=== PATIENT | male | born 2000 | race Two or more races ===

== ENCOUNTER 2019-09-01 12:44 | Emergency (ER) | payer MEDICAID ==
[~2019-09-01] VITALS: Ht 180.3 cm; Wt 79.4 kg
[2019-09-01 12:58] VITALS: BP 129/77
[2019-09-01] MEDS ORDERED: ACETAMINOPHEN ES 500 MG TABLET PO ONE (14:00)
[2019-09-01] MEDS ORDERED: ACETAMINOPHEN ES 500 MG TABLET ONE (14:10)
--- NOTE | 2019-09-01 16:06 | NUR ---
Patient discharged to home in stable condition. Written and verbal after care instructions given. Patient verbalizes understanding of instruction. Pt ambulatory with a steady gait
== END 2019-09-01 16:07 | disposition home or self-care (01) ==
LOC: ER 12:49
DX: R50.9 Fever, unspecified (principal); R51 Headache; J02.9 Acute pharyngitis, unspecified
CPT/HCPCS: 86403-TC; 87070-TC

== ENCOUNTER 2021-05-20 09:43 | Emergency (ER) | payer MEDICAID, OTHER ==
[~2021-05-20] VITALS: Ht 180.3 cm; Wt 81.6 kg
[2021-05-20 10:15] VITALS: BP 125/77
--- NOTE | 2021-05-20 10:15 | NUR ---
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
[2021-05-20] MEDS ORDERED: KETOROLAC TROMETHAMINE INJ 30 MG/ML VIAL IM ONE (10:30)
[2021-05-20] MEDS ORDERED: KETOROLAC TROMETHAMINE INJ 30 MG/ML VIAL ONE (10:36)
[2021-05-20] MEDS ORDERED: IBUP-1957 PO (11:17)
--- NOTE | 2021-05-20 11:54 | NUR ---
Patient discharged to home in stable condition. Written and verbal after care instructions given. Patient verbalizes understanding of instruction.
== END 2021-05-20 11:55 | disposition home or self-care (01) ==
LOC: ER 10:15
DX: S93.492A Sprain of other ligament of left ankle, initial encounter (principal); X50.1XXA Overexertion from prolonged static or awkward postures, initial encounter; Y93.89 Activity, other specified; Y92.89 Other specified places as the place of occurrence of the external cause; Y99.0 Civilian activity done for income or pay
CPT/HCPCS: 73610; 96372; 99283; J1885

== ENCOUNTER 2023-04-13 09:03 | Emergency (ER) | payer BC ==
[~2023-04-13] VITALS: Ht 180.3 cm; Wt 113.4 kg
[~2023-04-13 09:03] MED LIST: IBUP-1957 PO
[2023-04-13 09:36] VITALS: BP 128/86; TEMP 98; O2SAT 99
[2023-04-13] MEDS ORDERED: INDO-12 PO (11:09)
[2023-04-13] MEDS ORDERED: KETOROLAC TROMETHAMINE 15 MG/ML VIAL ONE (11:12)
[2023-04-13] MEDS ORDERED: KETOROLAC TROMETHAMINE 15 MG/ML VIAL IM ONE (11:30)
== END 2023-04-13 11:21 | disposition home or self-care (01) ==
LOC: ER 09:08
DX: M10.9 Gout, unspecified (principal); M79.644 Pain in right finger(s); Z79.899 Other long term (current) drug therapy
CPT/HCPCS: 99283; 96372; 73630; J1885

== ENCOUNTER 2023-08-03 08:02 | Emergency (ER) | payer BC, OTHER ==
[~2023-08-03] VITALS: Ht 180.3 cm; Wt 99.8 kg
[~2023-08-03 08:02] MED LIST changes: +INDO-12 PO
[2023-08-03] MEDS ORDERED: ONDANSETRON HCL/PF 4 MG/2 ML VIAL ONE (08:37)
[2023-08-03] MEDS: ONDANSETRON HCL/PF 4 MG/2 ML VIAL IVP ONE (08:54)
[2023-08-03] MEDS: IV NS 0.9% 1,000 ML BAG IV ONE (08:54)
[2023-08-03 08:56] LABS: BASOPHILS # (AUTO) 0.1 K/uL (0.0-0.2); BASOPHILS % (AUTO) 0.9 % (0.0-2.0); EOSINOPHILS # (AUTO) 0.1 K/uL (0.0-0.7); EOSINOPHILS % (AUTO) 0.7 % (0.0-6.0); HEMATOCRIT 47 % (39-51); HEMOGLOBIN 15.6 g/dL (13.5-17.5); LYMPHOCYTES # (AUTO) 1.6 K/uL (0.8-4.8); LYMPHOCYTES % (AUTO) 18.5 % (20.0-44.0); MEAN CORPUSCULAR HEMOGLOBIN 28 PG (26.0-33.0); MEAN CORPUSCULAR HGB CONC 34 g/dl (31.0-36.0); MEAN CORPUSCULAR VOLUME 83 fL (80-96); NEUTROPHILS # (AUTO) 5.9 K/uL (1.8-8.9); NEUTROPHILS % (AUTO) 68.9 % (43.0-81.0); PLATELET COUNT (AUTO) 224 K/uL (150-450); RED BLOOD CELL COUNT(AUTO) 5.64 MIL/uL (4.5-6.0); WHITE BLOOD COUNT (AUTO) 8.6 K/uL (4.3-11.0)
[2023-08-03 09:23] LABS: POTASSIUM 3.1 mmol/L (3.5-5.1)
[2023-08-03 09:29] LABS: BILIRUBIN,DIRECT 0.2 mg/dL (0.0-0.2); BILIRUBIN,TOTAL 0.8 mg/dL (0.2-1.0)
[2023-08-03] MEDS ORDERED: ONDA4TAB11 PO (09:47)
[2023-08-03 09:54] VITALS: BP 128/84; TEMP 99.2; O2SAT 99
== END 2023-08-03 10:04 | disposition home or self-care (01) ==
LOC: ER 08:02
DX: R11.2 Nausea with vomiting, unspecified (principal); Z60.2 Problems related to living alone
CPT/HCPCS: 99283; 96374; 96361; 85025; 80048; 83690; 80076; 36415; J2405; J7030